=== PATIENT | male | born 1960 ===

== ENCOUNTER 2018-01-24 09:07 | Outpatient (CLI) | payer OTHER ==
[~2018-01-24] VITALS: Ht 175.3 cm; Wt 78.0 kg
== END 2018-01-24 09:20 | disposition home or self-care (01) ==
LOC: OFIC 805 09:07
DX: K21.0 Gastro-esophageal reflux disease with esophagitis (principal); R09.82 Postnasal drip; R09.81 Nasal congestion; R68.89 Other general symptoms and signs